=== PATIENT | female | born 1985 | race Caucasian/White ===

== ENCOUNTER 2017-03-01 03:31 | Emergency (ER) | payer SELFPAY ==
[2017-03-01 05:36] VITALS: BP 108/73
[2017-03-01 05:58] LABS: Basophils % (Auto) 0.8 % (0.0-1.8); Eosinophils % (Auto) 1.5 % (0.0-4.3); Hematocrit 38.6 % (30.3-42.9); Hemoglobin 13.4 gm/dl (10.1-14.3); Mean Corpuscular HGB Conc 35 % (30-34); Mean Corpuscular Hemoglobin 32 pg (28-32); Mean Corpuscular Volume 93 fl (79-97); Platelet Count 233 K/mm3 (140-440); Red Blood Count 4.14 M/mm3 (3.65-5.03); Red Cell Distribution Width 12.6 % (13.2-15.2)
[2017-03-01 06:42] LABS: Alanine Aminotransferase 97 units/L (7-56); Albumin 3.6 g/dL (3.9-5); Albumin/Globulin Ratio 1.1 %; Alkaline Phosphatase 67 units/L (35-129); Anion Gap 16 mmol/L; BUN/Creatinine Ratio 26.66; Blood Urea Nitrogen 8 mg/dL (7-17); Calcium 8.9 mg/dL (8.4-10.2); Carbon Dioxide 22 mmol/L (22-30); Chloride 101.7 mmol/L (98-107); Glucose 88 mg/dL (65-100); Lipase 19 units/L (13-60); Sodium 136 mmol/L (137-145); Total Protein 6.8 g/dL (6.3-8.2)
--- NOTE | 2017-03-05 19:41 | ED Elopement Review ---
ED Pt Elopement review - Results review Lab results: Laboratory Tests 03/01/17 03/01/17 03/01/17 05:40 05:42 05:42 WBC 9.0 RBC 4.14 Hgb 13.4 Hct 38.6 MCV 93 MCH 32 MCHC 35 H RDW 12.6 L Plt Count 233 Lymph % (Auto) 24.5 [place] % (Auto) 6.5 Eos % (Auto) 1.5 Baso % (Auto) 0.8 Lymph # 2.2 [place] # 0.6 Eos # 0.1 Baso # 0.1 Seg Neutrophils % 66.7 Seg Neutrophils # 6.0 Sodium 136 L Potassium 4.0 Chloride 101.7 Carbon Dioxide 22 Anion Gap 16 BUN 8 Creatinine 0.3 L Estimated GFR > 60 BUN/Creatinine Ratio 26.66 Glucose 88 Calcium 8.9 Total Bilirubin 0.30 AST 60 H ALT 97 H Alkaline Phosphatase 67 Total Protein 6.8 Albumin 3.6 L Albumin/Globulin Ratio 1.1 Lipase 19 HCG, Quant Blood Type O POSITIVE Antibody Screen TNR [facility] Antibody Screen Negative 03/01/17 05:42 WBC RBC Hgb Hct MCV MCH MCHC RDW Plt Count Lymph % (Auto) [place] % (Auto) Eos % (Auto) Baso % (Auto) Lymph # [place] # Eos # Baso # Seg Neutrophils % Seg Neutrophils # Sodium Potassium Chloride Carbon Dioxide Anion Gap BUN Creatinine Estimated GFR BUN/Creatinine Ratio Glucose Calcium Total Bilirubin AST ALT Alkaline Phosphatase Total Protein Albumin Albumin/Globulin Ratio Lipase HCG, Quant 79561 H Blood Type Antibody Screen [facility] Antibody Screen - Call Back decision Pt Call Back Decision: Call pt to return to ED [facility] (pt with upper abd pain and elevated ASL/ALT)
== END 2017-03-01 06:00 | disposition left against medical advice (07) ==
LOC: ED 03:31
DX: R10.9 Unspecified abdominal pain (principal); Z53.21 Procedure and treatment not carried out due to patient leaving prior to being seen by health care provider
CPT/HCPCS: 36415; 80053; 83690; 84702; 85025; 86850; 86900; 86901